=== PATIENT | male | born 1965 | race Caucasian/White ===

== ENCOUNTER 2023-11-29 10:04 | Outpatient (AMB) | payer OTHER, SELFPAY ==
--- NOTE | 2023-11-29 10:12 | A.OFFVIS_ITS ---
Vital Signs 11/29/23 10:21 Height 5 ft 10 in Weight 139 lb BMI 19.9 BP 84/60 L Blood Pressure Location Lt brachial Position Sitting Pulse 51 Pulse Source Pulse Oximeter Pulse Oximetry (%) 100 Oxygen Delivery Method Room Air Intake Visit Reasons: tingling, spasms LE - EMG 06/18 [facility] Intake Note: Patient presents for tingling, spasm on both lower legs and right arm. Allergies No Known Allergies Allergy (Verified 11/29/23 10:18) HPI Comments Details: 58-yr-old male presents for neurological evaluation of BLE tingling. Pt reports tingling, zapping sensation, or insect crawling in his bilateral lower legs. Pt states this started a few years ago after being tx'd w/ ABTs for a LLE cellulitis. These symptoms were previously was in bilateral calves. More recently, he has had a decrease in the symptoms, now it is primarily zapping in the left mid-anterior shins, but can occur in either legs, occasionally in the arms. He can have legs cramps at times. Some jerking movements during sleep. In the past, the leg symptoms were interfering w/ his sleep but this is better. He feels this more at the night, but can feel when sitting at his desk as well- but does not notice it as much. He was evaluated by vascular surgery, who felt that although pt has some ev idence for venous insufficiency, it was quite mild, and would not likely be causing his symptoms. Was given compression stockings, which were helpful. Follow-up BLe EMG/NCs was normal. He feels that this is r/t microwave energy attacks. He uses tight compression socks- which still helps. TENs unit has been helpful. Mag Sulfate salves. Accupuncture. Mag Chloride oil topical. DSMO and Neem oil- in the am. He does atke a number of OTC supplements/detox tx's- states taking less than before and lower doses than recommended by the manufactures. Labs from [facility]: Mild anemia- H&H 13.5 & 41.6 Ferritin- 168 TSH 2.26 CMP- NL 06/18/2023, BLE EMG/NCS: IMPRESSION: ?Normal study. There is no nerve conduction study evidence of a large-fiber sensorimotor polyneuropathy affecting the lower extremities. No electrodiagnostic evidence of bilateral sciatic neuropathies, tibial neuropathies or peroneal neuropathy at the ankles or fibular heads. No electrodiagnostic evidence of bilateral lower lumbar/upper sacral plexopathies No EMG evidence of bilateral L2-S1 radiculopathies. ?However, sensory radiculopathy is not excluded by this study. ?Clinical correlation with lumbar imaging studies is advised. [facility] Surgical History History of appendectomy Family History (Updated 11/29/23 @ 10:20 by Claire Rehman CMA) Mother Multiple myeloma Father Cancer Prostate cancer Osteosarcoma Social History (Updated 11/29/23 @ 10:21 by Claire Rehman CMA) Alcohol intake: former Patient Tobacco Use Status: Former Tobacco user Substance Use Type: Marijuana Review of Systems Const All systems reviewed & are unremarkable except as noted in HPI and below Physical Exam Vital Signs: Last Vital Signs Pulse 51 11/29/23 10:21 BP 84/60 L 11/29/23 10:21 Pulse Ox 100 11/29/23 10:21 Oxygen Delivery Method Room Air 11/29/23 10:21 BMI result Body Mass Index 19.9 Const General: cooperative and no acute distress Orientation/consciousness: patient oriented x3 HEENT Head: Yes normocephalic Resp Effort & Inspection: normal respiratory effort and able to speak in complete sentences Neuro Other: BLE normal distal vibration and proprioception. General: patient oriented x3, CN's II-XI intact bilaterally, normal sensation to monofilament and deep tendon reflexes 2+ bilaterally Gait exam (Neuro): Normal gait present Motor exam (neuro): 5/5 motor strength present throughout Psych Appearance: grossly normal Mental Status: mental status grossly normal Speech and movement: Normal speech and movement present Affect: normal affect Attitude: cooperative Thought process: Normal thought process present Thought content: Normal thought content present Insight: Good insight present (Psych) Assessment & Plan Assessment & Plan (1) Restless leg syndrome: Code(s): G25.81 - Restless legs syndrome Category: Medical (2) Venous insufficiency: Code(s): I87.2 - Venous insufficiency (chronic) (peripheral) Category: Medical Plan Reviewed labs and BLE EMG/NCS. Pt's BLE s/s are currently c/w a dx of RLS. Will monitor. Pt may trial non-pharmacological interventions- such as weighted blankets, compression socks, compression boots. May use OTC magnesium creams/lotions. If s/s worsen, could consider gabapentin or dopaminergic tx. Continue stretching. Try using foam roller on BLE. Case discussed w/ Dr Reyes. Coding Level of Care Code New Pt Level 4 (10172) Diagnoses Restless leg syndrome G25.81 Venous insufficiency I87.2 Time Spent (min) 65 Comment on direct pt visit and review of pt's record.
[2023-11-29 10:21] VITALS: BP 84/60; PULSE 51; O2SAT 100; BMI 19.9
== END 2023-11-29 11:28 | disposition home or self-care (01) ==
PROVIDERS: Visit Provider Nurse Practitioner Family
DX: G25.81 Restless legs syndrome (principal); I87.2 Venous insufficiency (chronic) (peripheral)
CPT/HCPCS: 99204

== ENCOUNTER → 2023-11-29 10:04 | Outpatient (BNVA) | payer OTHER, SELFPAY | PROVIDERS: Visit Provider Nurse Practitioner Family | DX: G25.81 Restless legs syndrome (principal); I87.2 Venous insufficiency (chronic) (peripheral) | CPT/HCPCS: 99202 ==